=== PATIENT | male | born 1970 | race Caucasian/White ===

== ENCOUNTER → 2017-08-28 | Outpatient (CLI) | payer BC, OTHER | LOC: MHCPAIN 13:16 | DX: G89.29 Other chronic pain (principal); M47.812 Spondylosis without myelopathy or radiculopathy, cervical region; R51 Headache | CPT/HCPCS: G0463 ==

== ENCOUNTER → 2017-09-20 | Outpatient (CLI) | payer BC, OTHER | LOC: MHCPAIN 10:07 | DX: M50.323 Other cervical disc degeneration at C6-C7 level (principal); M46.82 Other specified inflammatory spondylopathies, cervical region ==

== ENCOUNTER → 2017-09-26 | Outpatient (CLI) | payer BC, OTHER | LOC: MHCPAIN 09:05 | DX: G89.29 Other chronic pain (principal); M50.90 Cervical disc disorder, unspecified, unspecified cervical region; R51 Headache | CPT/HCPCS: G0463 ==

== ENCOUNTER → 2017-11-01 | Outpatient (CLI) | payer BC, OTHER | LOC: MHCPAIN 12:03 | DX: M50.323 Other cervical disc degeneration at C6-C7 level (principal); M46.92 Unspecified inflammatory spondylopathy, cervical region ==

== ENCOUNTER → 2017-11-07 | Outpatient (CLI) | payer BC, OTHER | LOC: MHCPAIN 11:38 | DX: G89.29 Other chronic pain (principal); M50.30 Other cervical disc degeneration, unspecified cervical region; M99.51 Intervertebral disc stenosis of neural canal of cervical region; M46.82 Other specified inflammatory spondylopathies, cervical region; R51 Headache | CPT/HCPCS: G0463 ==

== ENCOUNTER → 2017-12-06 | Outpatient (CLI) | payer BC, OTHER | LOC: MHCPAIN 12:07 | DX: M50.322 Other cervical disc degeneration at C5-C6 level (principal) | CPT/HCPCS: J1100; J2250; J3010 ==

== ENCOUNTER → 2017-12-26 | Outpatient (CLI) | payer BC, OTHER | LOC: MHCPAIN 13:18 | DX: M50.322 Other cervical disc degeneration at C5-C6 level (principal) | CPT/HCPCS: J1100; J2250; J3010 ==